=== PATIENT | female | born 1995 | race Caucasian/White ===

== ENCOUNTER 2018-06-12 16:57 | Emergency (ER) | END 2018-06-12 17:57 | disposition home or self-care (01) ==

== ENCOUNTER 2018-09-04 11:34 | Emergency (ER) | payer MEDICAID ==
[~2018-09-04] VITALS: Ht 165.1 cm; Wt 67.6 kg
[~2018-09-04 11:34] MED LIST: AZIT250T PO; D-ME473S2 PO
[2018-09-04 11:37] VITALS: BP 134/73; PULSE 87; RESP 20; Ht 165.1 cm; Wt 67.6 kg
[2018-09-04] MEDS ORDERED: IBUPROFEN 600 MG TAB PO ONE (12:30)
[2018-09-04] MEDS ORDERED: D-ME473S2 PO (12:53)
[2018-09-04] MEDS ORDERED: AZIT250T PO (12:53)
[2018-09-04] MEDS ORDERED: IBUP-1542 PO (12:53)
--- NOTE | 2018-09-04 12:56 | ERD ---
ER Documentation Chief Complaint Chief Complaint sore throat, bodyache cough since HS HPI 22-year-old female since with sore throat, cough and body aches possibly fever since last night. She is worried because last time she had the symptoms she got "bronchitis". She denies chest pain, vomiting, abdominal pain, , additional symptoms. ROS All systems reviewed and are negative except as per history of present illness. Medications Home Meds Active Scripts Azithromycin* (Zithromax*) 250 Mg Tablet, 250 MG PO .ZPACK DIRECTED for 5 Days, #6 TAB TAKE 500 MG (2 TABS) THE FIRST DAY THEN 250 MG (1 TAB) DAYS 2-5 Prov:KIZZY ERVIN MD 09/04/18 Ibuprofen* (Motrin*) 600 Mg Tab, 600 MG PO Q6, #15 TAB Prov:KIZZY ERVIN MD 09/04/18 Dextromethorphan Hb-Promethazine Hcl* (Promethazine DM* Syrup) 473 Ml Syrup, 5 ML PO Q6 PRN for COUGH for 5 Days, ML Prov:KIZZY ERVIN MD 09/04/18 Azithromycin* (Zithromax*) 250 Mg Tablet, 250 MG PO .ZPACK DIRECTED, #6 TAB TAKE 500 MG (2 TABS) THE FIRST DAY THEN 250 MG (1 TAB) DAYS 2-5 Prov:KIZZY ERVIN MD 06/12/18 Dextromethorphan Hb-Promethazine Hcl* (Promethazine DM* Syrup) 473 Ml Syrup, 5 ML PO Q6 PRN for COUGH for 4 Days, ML Prov:KIZZY ERVIN MD 06/12/18 Allergies Allergies: Coded Allergies: No Known Allergy (Unverified , 06/12/18) PMhx/Soc History of Surgery: No Anesthesia Reaction: No Hx Neurological Disorder: Yes (abscence seizure disorder) Hx Respiratory Disorders: No Hx Cardiac Disorders: No Hx Psychiatric Problems: No Hx Miscellaneous Medical Probl: No Hx Alcohol Use: No Hx Substance Use: No Hx Tobacco Use: No Smoking Status: Never smoker FmHx Family History: No diabetes, No coronary disease, No other Physical Exam Vitals Vital Signs Date Temp Pulse Resp B/P (MAP) Pulse Ox O2 O2 Flow FiO2 Time Delivery Rate 09/04/18 99.4 87 20 134/73 100 11:37 (93) Physical Exam Const: No acute distress Head: Atraumatic Eyes: Normal Conjunctiva ENT: Normal External Ears, Nose and Mouth. Oropharynx normal. Neck: Full range of motion. No meningismus. Resp: Clear to auscultation bilaterally with coarse cough without rales, wheezing or retractions. Cardio: Regular rate and rhythm, no murmurs Abd: Soft, non tender, non distended. Normal bowel sounds Skin: No petechiae or rashes Back: No midline or flank tenderness Ext: No cyanosis, or edema Neur: Awake and alert Psych: Normal Mood and Affect Results 24 hrs Current Medications Medications Dose Sig/Willam Start Time Status Last (Trade) Ordered Route PRN Stop Time Admin Dose Reason Admin Ibuprofen 600 mg ONCE ONCE 09/04/18 DC 09/04/18 (Motrin) PO 12:30 09/04/18 12:10 12:31 Procedures/MDM Influenza swab negative. Patient presents with fever and URI symptoms last day. She likely has a viral URI. Will treat with promethazine DM, ibuprofen. Patient is requesting antibiotics. Patient was counseled on viral versus bacterial causes of your symptoms. Patient was given a prescription of Zithromax by request although counseled to hold for 3-5 days and allow what appears to be currently a viral illness to resolve. Otherwise take for worsening productive cough or symptoms or follow-up with primary doctor or recheck sooner for new or worsening symptoms. The patient was stable with no new complaints during the ER course. Clinically, there is no current evidence to suggest meningitis, sepsis, acute abdomen, pneumonia, stroke, acute coronary syndrome, pulmonary embolism, aortic dissection or any other emergent condition appearing to require further evaluation or hospitalization. Patient counseled regarding my diagnostic impression and care plan. Prior to discharge all questions answered. Pt agrees with treatment plan and understands strict return precautions. Pt is instructed to follow up with primary care provider within 24-48 hours. Precautionary instructions provided including instructions to return to the ER if not improving or for any worsening or changing symptoms or concerns. Departure Diagnosis: Primary Impression: Upper respiratory infection URI type: unspecified URI Qualified Codes: J06.9 - Acute upper respiratory infection, unspecified Condition: Stable Patient Instructions: Uri, Viral, No Abx (Adult) Additional Instructions: Influenza swab negative. Likely viral illness should resolve the next few days. Okay to hold prescription of antibiotics (Zithromax). Recheck with primary doctor or worsening symptoms. KIZZY ERVIN MD Sep 04, 2018 12:56
== END 2018-09-04 13:05 | disposition home or self-care (01) ==
LOC: FTE 11:34
DX: J06.9 Acute upper respiratory infection, unspecified (principal)
CPT/HCPCS: 87400; Z7502; Z7610; 99283